=== PATIENT | male | born 1975 | race African-American/Black ===

== ENCOUNTER 2021-05-21 07:46 | Emergency (ER) | payer OTHER, SELFPAY ==
[2021-05-21 08:27] LABS: #Lymphocytes 2.3 thou/uL (1.20-3.40); #Monocytes 0.4 thou/uL (0.11-0.59); #Neutrophils 2.8 thou/uL (1.40-6.50); %Basophils 0.9 % (0.0-1.0); %Eosinophils 0.7 % (0.0-10.0); %Lymphocytes 41.2 % (21.0-51.0); %Monocytes 6.8 % (0.0-10.0); %Neutrophils 50.5 % (42.0-75.0); Hemoglobin 10.3 g/dL (14.0-18.0); Mean Corpuscular HGB CONC 34.1 g/dL (32.0-36.0); Mean Corpuscular Hemoglobin 28.2 pg (27.0-31.0); Mean Corpuscular Volume 82.6 fL (78.0-98.0); Mean Platelet Volume 9.1 fL (7.4-10.4); Platelet Count 224 thou/uL (130-400); Red Blood Cell (RBC) Count 3.66 mill/uL (4.70-6.10); White Blood Cell (WBC) Count 5.6 thou/uL (4.8-10.8)
[2021-05-21 08:47] LABS: ALT (SGPT) 20 U/L (8-55); AST (SGOT) 14 U/L (5-34); Albumin 2.9 g/dL (3.5-5.0); Alkaline Phosphatase 83 U/L (40-110); Anion Gap 11 mmol/L (10-20); BUN (Urea Nitrogen) 41 mg/dL (8.9-20.6); Bilirubin, Total 0.3 mg/dL (0.2-1.2); Calc. Creatinine Clearance 0 mL/min (70-130); Calcium 8.8 mg/dL (7.8-10.44); Carbon Dioxide 30 mmol/L (22-29); Chloride 98 mmol/L (98-107); Globulin 2.8 g/dL (2.4-3.5); Lipase 8 U/L (8-78); Potassium 3.9 mmol/L (3.5-5.1); Protein, Total 5.7 g/dL (6.0-8.3); Sodium 135 mmol/L (136-145)
[2021-05-21 09:02] LABS: Glucose 556 mg/dL (70-105)
[2021-05-21] MEDS ORDERED: Insulin Regular 300 UNITS/3 ML VIAL ONE (11:33)
[2021-05-21 13:00] LABS: Bilirubin Negative (Negative); Blood, Urine Negative (Negative); Clarity Clear (Clear); Glucose, Urine (Dipstick) Greater than 1000 mg/dL (Negative); Ketone, Urine Negative (Negative); Leukocyte 25 Leu/uL (Negative); Nitrite Negative (Negative); Protein, Urine (Dipstick) 30 mg/dL (Neg-Trace); RBC/HPF 0-3 HPF (0-3); Specific Gravity, Urine 1.028 (1.002-1.036); Squamous Epithelial None Seen HPF (0-3); Urobilinogen Normal mg/dL (Less than 2)
[2021-05-21 13:01] LABS: Bacteria/HPF Rare-Few HPF (None Seen)
== END 2021-05-21 13:07 | disposition home or self-care (01) ==
LOC: ERS 07:46
DX: E11.65 Type 2 diabetes mellitus with hyperglycemia (principal); R42 Dizziness and giddiness
CPT/HCPCS: 36416; 71045; 80053; 81003; 81015; 83690; 83880; 84484; 85025; 85379; 93005; 96374; J1815

== ENCOUNTER 2021-05-22 09:24 | Inpatient (IN) | payer SELFPAY ==
[2021-05-22 10:23] LABS: #Lymphocytes 1.5 thou/uL (1.20-3.40); #Monocytes 0.3 thou/uL (0.11-0.59); #Neutrophils 3.8 thou/uL (1.40-6.50); %Eosinophils 0.5 % (0.0-10.0); %Lymphocytes 27.1 % (21.0-51.0); %Monocytes 4.7 % (0.0-10.0); %Neutrophils 67.6 % (42.0-75.0); Hemoglobin 7.4 g/dL (14.0-18.0); Mean Corpuscular HGB CONC 33.4 g/dL (32.0-36.0); Mean Corpuscular Hemoglobin 27.6 pg (27.0-31.0); Mean Corpuscular Volume 82.6 fL (78.0-98.0); Mean Platelet Volume 8.9 fL (7.4-10.4); Platelet Count 201 thou/uL (130-400); Red Blood Cell (RBC) Count 2.67 mill/uL (4.70-6.10); White Blood Cell (WBC) Count 5.6 thou/uL (4.8-10.8)
[2021-05-22 10:43] LABS: ALT (SGPT) 18 U/L (8-55); AST (SGOT) 13 U/L (5-34); Albumin 2.5 g/dL (3.5-5.0); Alkaline Phosphatase 66 U/L (40-110); Anion Gap 10 mmol/L (10-20); BUN (Urea Nitrogen) 48 mg/dL (8.9-20.6); Bilirubin, Total 0.2 mg/dL (0.2-1.2); Calc. Creatinine Clearance 0 mL/min (70-130); Calcium 8.3 mg/dL (7.8-10.44); Carbon Dioxide 26 mmol/L (22-29); Chloride 104 mmol/L (98-107); Globulin 2.3 g/dL (2.4-3.5); Glucose 497 mg/dL (70-105); Potassium 3.8 mmol/L (3.5-5.1); Protein, Total 4.8 g/dL (6.0-8.3); Sodium 136 mmol/L (136-145)
[2021-05-22 11:43] LABS: INR-International Normal Ratio 1.1; Prothrombin Time 13.9 sec (12.0-14.7)
[2021-05-22] MEDS ORDERED: Dextrose 50% Abboject 50 ML SYRINGE SLOW IVP PRN (11:58)
[2021-05-22] MEDS ORDERED: Ondansetron PF 4 MG/2 ML Vial IVP PRN (11:58)
[2021-05-22] MEDS ORDERED: Dextrose 5% in Water 1,000 ML IV PRN (11:58)
[2021-05-22] MEDS ORDERED: Pantoprazole 40 MG VIAL IVP SCH (12:15)
[2021-05-22 12:41] LABS: Bilirubin Negative (Negative); Blood, Urine Negative (Negative); Clarity Clear (Clear); Glucose, Urine (Dipstick) Greater than 1000 mg/dL (Negative); Ketone, Urine 10 mg/dL (Negative); Leukocyte Negative Leu/uL (Negative); Nitrite Negative (Negative); Protein, Urine (Dipstick) 20 mg/dL (Neg-Trace); Specific Gravity, Urine 1.025 (1.002-1.036); Urobilinogen Normal mg/dL (Less than 2); pH, Urine 5.5 (5.0-9.0)
[2021-05-22] MEDS ORDERED: Fentanyl 100 MCG/2 ML VIAL ONE ×2 (13:53→15:16)
[2021-05-22] MEDS ORDERED: Insulin Regular 300 UNITS/3 ML VIAL ONE (14:16)
[2021-05-22] MEDS ORDERED: Ondansetron PF 4 MG/2 ML Vial ONE (14:30)
[2021-05-22] MEDS ORDERED: PROPOFOL 200 MG/20 ML VIAL ONE (14:30)
[2021-05-22] MEDS ORDERED: EPINEPHrine 1 MG/10 ML Abboject SYRINGE ONE (14:47)
[2021-05-22] MEDS ORDERED: Promethazine HCl 25 MG/ML VIAL IM PRN (14:55)
[2021-05-22] MEDS ORDERED: Promethazine HCl 25 MG/ML VIAL IVPB PRN (14:55)
[2021-05-22] MEDS ORDERED: Ondansetron HCl/PF 4 MG/2 ML Vial IVP PRN (14:55)
[2021-05-22 15:56] VITALS: BMI 30.9
[2021-05-22] MEDS ORDERED: FLU VACC QS2021-22(6MOS UP)/PF 60 MCG/0.5 ML SYRINGE IM ONE (16:15)
[2021-05-22] MEDS: Sodium Chloride 0.9% 1,000 ML IV SCH (16:30)
[2021-05-22 18:06] LABS: Hemoglobin 6.7 g/dL (14.0-18.0)
[2021-05-22 18:11] LABS: Hemoglobin A1c Greater than 14.0 % (4.0-6.0)
[2021-05-22 19:25] LABS: SARS-CoV-2 PCR by NAA Not Detected (NotDetected)
[2021-05-22] MEDS: Pantoprazole 40 MG VIAL IVP SCH (20:44)
[2021-05-22 21:50] LABS: Hemoglobin 6.2 g/dL (14.0-18.0)
[2021-05-22] MEDS: HumaLOG 300 UNITS/3 ML VIAL SC PRN (21:58)
[2021-05-23] MEDS: Acetaminophen 325 MG TAB PO PRN ×2 (01:40→10:33)
[2021-05-23 03:06] LABS: #Monocytes 0.5 thou/uL (0.11-0.59); #Neutrophils 2.9 thou/uL (1.40-6.50); %Basophils 0.3 % (0.0-1.0); %Eosinophils 0.7 % (0.0-10.0); %Lymphocytes 36.8 % (21.0-51.0); %Monocytes 8.4 % (0.0-10.0); %Neutrophils 53.8 % (42.0-75.0); Hemoglobin 6.9 g/dL (14.0-18.0); Mean Corpuscular HGB CONC 34.6 g/dL (32.0-36.0); Mean Corpuscular Hemoglobin 28.8 pg (27.0-31.0); Mean Corpuscular Volume 83.2 fL (78.0-98.0); Mean Platelet Volume 8.3 fL (7.4-10.4); Platelet Count 163 thou/uL (130-400); RBC Distribution Width 12.6 % (11.5-14.5); Red Blood Cell (RBC) Count 2.41 mill/uL (4.70-6.10); White Blood Cell (WBC) Count 5.4 thou/uL (4.8-10.8)
[2021-05-23 03:47] LABS: Anion Gap 9 mmol/L (10-20); BUN (Urea Nitrogen) 28 mg/dL (8.9-20.6); Calc. Creatinine Clearance 124 mL/min (70-130); Carbon Dioxide 27 mmol/L (22-29); Chloride 107 mmol/L (98-107); Glucose 378 mg/dL (70-105); Potassium 3.8 mmol/L (3.5-5.1); Sodium 139 mmol/L (136-145)
[2021-05-23] MEDS: Sodium Chloride 0.9% 1,000 ML IV SCH ×2 (05:05→12:44)
[2021-05-23] MEDS: HumaLOG 300 UNITS/3 ML VIAL SC PRN ×3 (05:10→20:19)
[2021-05-23] MEDS: Pantoprazole 40 MG VIAL IVP SCH (08:25)
[2021-05-23 10:16] LABS: Hemoglobin 7.9 g/dL (14.0-18.0)
[2021-05-23] MEDS: Lantus 1000 UNITS/10 ML VIAL SC SCH (10:35)
[2021-05-24] MEDS: Sodium Chloride 0.9% 1,000 ML IV SCH (01:26)
[2021-05-24] MEDS: Acetaminophen 325 MG TAB PO PRN (05:07)
[2021-05-24] MEDS: HumaLOG 300 UNITS/3 ML VIAL SC PRN ×3 (05:11→12:18)
[2021-05-24] MEDS: Lantus 1000 UNITS/10 ML VIAL SC SCH (08:12)
[2021-05-24] MEDS ORDERED: Amlodipine 10 MG TAB PO SCH (09:00)
[2021-05-24 12:32] VITALS: BP 138/78; TEMP 98
== END 2021-05-24 14:08 | disposition home or self-care (01) | DRG 378 ==
LOC: ERS 09:24 → T4-B 11:58
PROVIDERS: ADMIT Internal Medicine; ATTEND Internal Medicine
PROC: 30233N1 Transfusion of Nonautologous Red Blood Cells into Peripheral Vein, Percutaneous Approach (ICD-10-PCS; principal; 2021-05-22)
PROC: 0W3P8ZZ Control Bleeding in Gastrointestinal Tract, Via Natural or Artificial Opening Endoscopic (ICD-10-PCS; 2021-05-23)
PROC: 0DB78ZX Excision of Stomach, Pylorus, Via Natural or Artificial Opening Endoscopic, Diagnostic (ICD-10-PCS; 2021-05-23)
DX: K25.4 Chronic or unspecified gastric ulcer with hemorrhage (principal); D62 Acute posthemorrhagic anemia; Z20.822 Contact with and (suspected) exposure to COVID-19; K29.71 Gastritis, unspecified, with bleeding; E11.65 Type 2 diabetes mellitus with hyperglycemia; Z88.0 Allergy status to penicillin; Z79.82 Long term (current) use of aspirin; Z79.4 Long term (current) use of insulin; Z79.84 Long term (current) use of oral hypoglycemic drugs
CPT/HCPCS: 36415; 36416; 36430; 71045; 80048; 80053; 81003; 82010; 82274; 83036; 85025; 85610; 86850; 86900; 86901; 88305; 88312; 99285; C9113; J0171; J1815; J2405; J2704; J3010; J7050; P9016; U0003; U0005

== ENCOUNTER 2021-12-05 06:41 | Emergency (ER) | payer SELFPAY ==
[2021-12-05 07:23] LABS: #Eosinphils 0.1 thou/uL (0.0-0.7); #Lymphocytes 2.2 thou/uL (1.20-3.40); #Monocytes 0.4 thou/uL (0.11-0.59); #Neutrophils 2.6 thou/uL (1.40-6.50); %Basophils 0.6 % (0.0-1.0); %Eosinophils 1.7 % (0.0-10.0); %Lymphocytes 40.8 % (21.0-51.0); %Monocytes 7.8 % (0.0-10.0); Hemoglobin 12.4 g/dL (14.0-18.0); Mean Corpuscular HGB CONC 33.7 g/dL (32.0-36.0); Mean Corpuscular Hemoglobin 26.4 pg (27.0-31.0); Mean Corpuscular Volume 78.5 fL (78.0-98.0); Platelet Count 229 thou/uL (130-400); RBC Distribution Width 13.3 % (11.5-14.5); Red Blood Cell (RBC) Count 4.68 mill/uL (4.70-6.10); White Blood Cell (WBC) Count 5.3 thou/uL (4.8-10.8)
[2021-12-05 07:43] LABS: ALT (SGPT) 19 U/L (8-55); AST (SGOT) 17 U/L (5-34); Albumin 3.4 g/dL (3.5-5.0); Alkaline Phosphatase 162 U/L (40-110); Anion Gap 14 mmol/L (10-20); BUN (Urea Nitrogen) 17 mg/dL (8.9-20.6); Bilirubin, Total 0.2 mg/dL (0.2-1.2); Calc. Creatinine Clearance 0 mL/min (70-130); Calcium 8.9 mg/dL (7.8-10.44); Carbon Dioxide 30 mmol/L (22-29); Chloride 94 mmol/L (98-107); Estimated GFR 44; Glucose 539 mg/dL (70-105); Protein, Total 6.4 g/dL (6.0-8.3); Sodium 134 mmol/L (136-145)
[2021-12-05] MEDS ORDERED: Insulin Regular 300 UNITS/3 ML VIAL ONE ×2 (08:51→09:05)
[2021-12-05 08:59] LABS: Bacteria/HPF None Seen HPF (None Seen); Bilirubin Negative (Negative); Blood, Urine 1+ (Negative); Clarity Clear (Clear); Glucose, Urine (Dipstick) Greater than 1000 mg/dL (Negative); Ketone, Urine Negative (Negative); Leukocyte Negative Leu/uL (Negative); Nitrite Negative (Negative); Protein, Urine (Dipstick) 70 mg/dL (Neg-Trace); RBC/HPF 0-3 HPF (0-3); Specific Gravity, Urine 1.015 (1.002-1.036); Squamous Epithelial 0-3 HPF (0-3); Urobilinogen Normal mg/dL (Less than 2); WBC/HPF 0-3 HPF (0-3); pH, Urine 6.5 (5.0-9.0)
== END 2021-12-05 09:45 | disposition home or self-care (01) ==
LOC: ERS 06:41
DX: E11.65 Type 2 diabetes mellitus with hyperglycemia (principal); E86.0 Dehydration; Z79.84 Long term (current) use of oral hypoglycemic drugs
CPT/HCPCS: 36415; 36416; 80053; 81003; 81015; 85025; 93005; J1815

== ENCOUNTER 2023-02-05 09:16 | Day surgery (SDC) | payer BC ==
[2023-02-05 15:02] VITALS: BP 171/95; TEMP 98.7
== END 2023-02-05 15:30 | disposition home or self-care (01) ==
LOC: CT 09:16
PROVIDERS: ATTEND Internal Medicine Nephrology
PROC: 0TB10ZX Excision of Left Kidney, Open Approach, Diagnostic (ICD-10-PCS; principal; 2023-02-05)
DX: N17.9 Acute kidney failure, unspecified (principal); N04.9 Nephrotic syndrome with unspecified morphologic changes; E11.21 Type 2 diabetes mellitus with diabetic nephropathy
CPT/HCPCS: 50200; 77002; 88329

== ENCOUNTER 2024-01-27 05:24 | Inpatient (IN) | payer BC, SELFPAY ==
[2024-01-27] MEDS ORDERED: Nitroglycerin 2% Ointment 1 INCH/1 GM Packet ONE (06:04)
[2024-01-27 06:11] LABS: #Basophils Less than 0.03 10x3/uL (0.0-0.2); %Basophils 0.2 % (0.0-1.0); %Eosinophils 2.7 % (0.0-10.0); %Lymphocytes 32.8 % (21.0-51.0); %Monocytes 9.2 % (0.0-10.0); %Neutrophils 54.8 % (42.0-75.0); Hematocrit 26.4 % (42.0-52.0); Hemoglobin 8.5 g/dL (14.0-18.0); Mean Corpuscular HGB CONC 32.2 g/dL (32.0-36.0); Mean Corpuscular Hemoglobin 27.9 pg (27.0-31.0); Mean Corpuscular Volume 86.6 fL (78.0-98.0); Mean Platelet Volume 10.8 fL (7.4-10.4); Platelet Count 229 10x3/uL (130-400); RBC Distribution Width 13.7 % (11.5-14.5); Red Blood Cell (RBC) Count 3.05 mill/uL (4.70-6.10)
[2024-01-27 06:26] LABS: ALT (SGPT) 13 U/L (8-55); AST (SGOT) 20 U/L (5-34); Albumin 3.6 g/dL (3.5-5.0); Alkaline Phosphatase 50 U/L (40-110); Anion Gap 17 mmol/L (10-20); BUN (Urea Nitrogen) 88 mg/dL (8.9-20.6); Bilirubin, Total 0.4 mg/dL (0.2-1.2); Calc. Creatinine Clearance 0 mL/min (70-130); Calcium 7.1 mg/dL (7.8-10.44); Carbon Dioxide 22 mmol/L (22-29); Chloride 104 mmol/L (98-107); Estimated GFR 8; Globulin 3.7 g/dL (2.4-3.5); Glucose 127 mg/dL (70-105); Lipase 17 U/L (8-78); Potassium 4.2 mmol/L (3.5-5.1); Protein, Total 7.3 g/dL (6.0-8.3); Sodium 139 mmol/L (136-145)
[2024-01-27] MEDS ORDERED: traMADol HCl 50 MG TAB PO PRN (08:36)
[2024-01-27] MEDS ORDERED: Acetaminophen 325 MG TAB PO PRN (08:36)
[2024-01-27 08:55] LABS: Iron 47 ug/dL (65-175); Iron Binding Capacity, Total 274 mcg/dL (261-462)
[2024-01-27] MEDS ORDERED: Dextrose 5% in Water 1,000 ML IV PRN (09:00)
[2024-01-27] MEDS ORDERED: Dextrose 50% Abboject 50 ML SYRINGE SLOW IVP PRN (09:00)
[2024-01-27] MEDS ORDERED: Insulin Lispro 100 UNIT/ML 10 ML VIAL SC PRN (09:00)
[2024-01-27] MEDS ORDERED: Glucagon 1 MG/ML KIT IM PRN (09:00)
[2024-01-27] MEDS ORDERED: Non-Formulary Item 1 EACH (Labetalol Hcl [Normodyne] 200 MG Tab) PO SCH (09:00)
[2024-01-27 09:10] LABS: HBSAB Concentration Less than 8.00 mIU/mL; HBsAg Index 0.36 S/CO (0-0.99); Hep B Core Total Ab NONREACTIVE (NonReactive); Hep B Core Total Index 0.12 S/CO (0-0.79); Hep B Surf AB NONREACTIVE (NonReactive); Hep B Surf Ag NONREACTIVE S/CO (NonReactive); Hep C IgG Ab NONREACTIVE S/CO (NonReactive); Hep C Index 0.12 S/CO (0-0.79)
[2024-01-27 09:15] LABS: Ferritin 212.25 ng/mL (22-322)
[2024-01-27 17:53] VITALS: BMI 34.3
[2024-01-27] MEDS: Heparin 5,000 UNITS/ML VIAL SC SCH (18:02)
[2024-01-27] MEDS: Sodium Ferric Gluconate 250 MG in Sodium Chloride 0.9% 250 ML 250 ML IVPB SCH (18:03)
[2024-01-27] MEDS: Torsemide 20 MG TAB PO SCH (18:03)
[2024-01-27] MEDS: NIFEdipine XL 60 MG ER.TAB PO SCH (18:03)
[2024-01-27] MEDS: Labetalol HCl 100 MG TAB PO SCH (20:38)
[2024-01-28] MEDS: Lidocaine-Prilocaine 2.5% Cream 5 GM TUBE TOP SCH (08:33)
[2024-01-28] MEDS: Metolazone 2.5 MG TAB PO SCH (08:33)
[2024-01-28] MEDS: Labetalol HCl 100 MG TAB PO SCH (08:33)
[2024-01-28] MEDS ORDERED: Heparin 10,000 UNITS/ 10 ML VIAL ONE (10:35)
[2024-01-28] MEDS ORDERED: traMADol HCl 50 MG TAB PO PRN (10:55)
[2024-01-28] MEDS: Ergocalciferol 1.25 MG(50,000 UNITS) CAP PO SCH (14:07)
[2024-01-28] MEDS: Tuberculin PPD 0.1 ML SYRINGE (10 TEST VIAL) I-DERMAL SCH (14:07)
[2024-01-28] MEDS: Calcium Carbonate 600 MG TAB PO SCH (14:07)
[2024-01-28] MEDS: EPOETIN ALFA-EPBX (ESRD) 10,000 UNITS/ML VIAL SC SCH (14:07)
[2024-01-29 07:25] LABS: #Basophils Less than 0.03 10x3/uL (0.0-0.2); %Basophils 0.2 % (0.0-1.0); %Eosinophils 1.6 % (0.0-10.0); %Lymphocytes 34.4 % (21.0-51.0); %Monocytes 10.8 % (0.0-10.0); %Neutrophils 52.8 % (42.0-75.0); Hematocrit 21.5 % (42.0-52.0); Mean Corpuscular HGB CONC 32.6 g/dL (32.0-36.0); Mean Corpuscular Hemoglobin 28.2 pg (27.0-31.0); Mean Corpuscular Volume 86.7 fL (78.0-98.0); Mean Platelet Volume 10.2 fL (7.4-10.4); Platelet Count 182 10x3/uL (130-400); RBC Distribution Width 13.4 % (11.5-14.5); Red Blood Cell (RBC) Count 2.48 mill/uL (4.70-6.10)
[2024-01-29 07:48] LABS: Anion Gap 13 mmol/L (10-20); BUN (Urea Nitrogen) 67 mg/dL (8.9-20.6); BUN/Creatinine Ratio 10.09; Calc. Creatinine Clearance 24 mL/min (70-130); Carbon Dioxide 26 mmol/L (22-29); Chloride 107 mmol/L (98-107); Estimated GFR 10; Glucose 128 mg/dL (70-105); Phosphorus 5.3 mg/dL (2.3-4.7); Potassium 4.5 mmol/L (3.5-5.1); Sodium 141 mmol/L (136-145)
[2024-01-29] MEDS: Calcitriol 0.25 MCG CAP PO SCH (10:36)
[2024-01-30] MEDS: FLU (Fluarix Triv) TS24-25(6MOS UP)/PF 45 MCG/0.5 ML Syringe IM ONE (08:25)
[2024-01-30] MEDS: READ PPD TEST SITE PO SCH (08:26)
[2024-01-30 08:41] LABS: #Basophils Less than 0.03 10x3/uL (0.0-0.2); %Basophils 0.2 % (0.0-1.0); %Eosinophils 2.9 % (0.0-10.0); %Lymphocytes 32.2 % (21.0-51.0); %Monocytes 12.9 % (0.0-10.0); %Neutrophils 51.2 % (42.0-75.0); Hematocrit 20.6 % (42.0-52.0); Hemoglobin 6.7 g/dL (14.0-18.0); Mean Corpuscular HGB CONC 32.5 g/dL (32.0-36.0); Mean Corpuscular Hemoglobin 27.3 pg (27.0-31.0); Mean Corpuscular Volume 84.1 fL (78.0-98.0); Mean Platelet Volume 10.8 fL (7.4-10.4); Platelet Count 183 10x3/uL (130-400); RBC Distribution Width 13.2 % (11.5-14.5); Red Blood Cell (RBC) Count 2.45 mill/uL (4.70-6.10)
[2024-01-30 08:57] LABS: Albumin 2.9 g/dL (3.5-5.0); Anion Gap 14 mmol/L (10-20); BUN (Urea Nitrogen) 73 mg/dL (8.9-20.6); BUN/Creatinine Ratio 10.33; Calc. Creatinine Clearance 23 mL/min (70-130); Carbon Dioxide 26 mmol/L (22-29); Chloride 104 mmol/L (98-107); Estimated GFR 9; Glucose 183 mg/dL (70-105); Phosphorus 5.4 mg/dL (2.3-4.7); Potassium 4.6 mmol/L (3.5-5.1); Sodium 139 mmol/L (136-145)
[2024-01-30] MEDS: Lidocaine-Prilocaine 2.5% Cream 5 GM TUBE TOP SCH (10:17)
[2024-01-31 04:31] LABS: #Basophils Less than 0.03 10x3/uL (0.0-0.2); %Basophils 0.2 % (0.0-1.0); %Eosinophils 3.1 % (0.0-10.0); %Lymphocytes 33.8 % (21.0-51.0); %Monocytes 13.4 % (0.0-10.0); %Neutrophils 49.3 % (42.0-75.0); Hematocrit 23.7 % (42.0-52.0); Hemoglobin 7.6 g/dL (14.0-18.0); Mean Corpuscular HGB CONC 32.1 g/dL (32.0-36.0); Mean Corpuscular Hemoglobin 28.3 pg (27.0-31.0); Mean Corpuscular Volume 88.1 fL (78.0-98.0); Mean Platelet Volume 10.5 fL (7.4-10.4); Platelet Count 185 10x3/uL (130-400); RBC Distribution Width 13.2 % (11.5-14.5); Red Blood Cell (RBC) Count 2.69 mill/uL (4.70-6.10)
[2024-01-31 05:10] LABS: Anion Gap 11 mmol/L (10-20); BUN (Urea Nitrogen) 45 mg/dL (8.9-20.6); Calc. Creatinine Clearance 31 mL/min (70-130); Calcium 8.5 mg/dL (7.8-10.44); Carbon Dioxide 29 mmol/L (22-29); Chloride 102 mmol/L (98-107); Estimated GFR 13; Glucose 116 mg/dL (70-105); Potassium 4.4 mmol/L (3.5-5.1); Sodium 138 mmol/L (136-145)
[2024-01-31] MEDS: Labetalol HCl 100 MG TAB PO SCH (08:44)
[2024-01-31 14:43] VITALS: BP 135/77; TEMP 97.8
== END 2024-01-31 14:41 | disposition home or self-care (01) | DRG 291 ==
LOC: ERS 05:24 → MSONC 08:36 → ERS 09:49
PROVIDERS: ADMIT Internal Medicine; ATTEND Family Medicine
PROC: 30233N1 Transfusion of Nonautologous Red Blood Cells into Peripheral Vein, Percutaneous Approach (ICD-10-PCS; principal; 2024-01-30)
DX: I13.0 Hypertensive heart and chronic kidney disease with heart failure and stage 1 through stage 4 chronic kidney disease, or unspecified chronic kidney disease (principal); N18.6 End stage renal disease; N25.81 Secondary hyperparathyroidism of renal origin; E11.22 Type 2 diabetes mellitus with diabetic chronic kidney disease; D63.1 Anemia in chronic kidney disease; Z99.2 Dependence on renal dialysis; E55.9 Vitamin D deficiency, unspecified; Z79.899 Other long term (current) drug therapy; I50.9 Heart failure, unspecified
CPT/HCPCS: 36415; 36416; 36430; 71045; 80048; 80053; 80069; 82306; 82728; 83540; 83550; 83690; 83880; 84484; 85025; 86580; 86704; 86706; 86803; 86850; 86900; 86901; 87340; 90935; 93005; 94760; G0257; J1644; J2916; J7050; P9016; Q5105